=== PATIENT | female | born 1960 | race Caucasian/White ===

== ENCOUNTER → 2023-06-15 14:35 | Outpatient (REF) | payer OTHER, SELFPAY | LOC: RCS 14:35 | PROVIDERS: ATTENDING PHYSICIAN Otolaryngology Facial Plastic Surgery; FAMILY PHYSICIAN Nurse Practitioner | DX: Z01.818 Encounter for other preprocedural examination (principal); R59.0 Localized enlarged lymph nodes; E04.1 Nontoxic single thyroid nodule | CPT/HCPCS: 93005 ==

== ENCOUNTER 2023-06-22 06:23 | Day surgery (SDC) | payer OTHER, SELFPAY ==
[2023-06-22] VITALS (9 sets, daily range): BP systolic 102–145; BP diastolic 71–88; BMI 26.6
[2023-06-22 13:41] LABS: Glucose - Point of Care 159 mg/dl (70-99)
[2023-06-22] MEDS: NORMOSOL-R 1000 IV (13:43)
[2023-06-22 15:12] LABS: Glucose - Point of Care 147 mg/dl (70-99)
== END 2023-06-22 16:37 | disposition home or self-care (01) ==
LOC: SDS 06:23
PROVIDERS: ATTENDING PHYSICIAN Otolaryngology Facial Plastic Surgery
DX: R22.1 Localized swelling, mass and lump, neck (principal)
CPT/HCPCS: 21556; 88304; 82962

== ENCOUNTER → 2024-10-03 13:15 | Outpatient (REF) | payer OTHER, SELFPAY | LOC: PET 13:15 | PROVIDERS: ATTENDING PHYSICIAN Otolaryngology | DX: C56.3 Malignant neoplasm of bilateral ovaries (principal) | CPT/HCPCS: 78815; A9552 ==